=== PATIENT | male | born 1945 | race Caucasian/White ===

== ENCOUNTER 2023-08-17 12:58 | Emergency (ER) | payer MEDICARE, SELFPAY ==
[2023-08-17 13:07] VITALS: BP 153/99
[2023-08-17 13:28] LABS: % Basophils 1.3 % (0-2); % Eosinophils 5.8 % (0-6); % Immature Granulocytes 0.7 % (0-0.5); % Lymphocytes 23.4 % (20.5-51.1); % Monocytes 8.8 % (1.7-9.3); Absolute Basophils 0.2 10^3/uL (0-0.2); Absolute Eosinophils 0.8 10^3/uL (0-0.7); Absolute Immature Granulocytes 0.1 10^3/uL (0-0.05); Absolute Lymphocytes 3.2 10^3/uL (1.2-3.4); Absolute Monocytes 1.2 10^3/uL (0.1-0.6); Absolute Neutrophils 8.1 10^3/uL (1.4-6.5); Hemoglobin 15.7 g/dL (13.0-18.0); Mean Corp Hgb Conc. 34.9 g/dL (33.0-37.0); Mean Corpuscular Hgb 32.1 pg (27.0-31.0); Mean Platelet Volume 8.7 fL (7.4-10.4); Nucleated Red Blood Cells % 0 % (-); Platelet Count 162 10^3/uL (130-400); Red Blood Cell Count 4.89 10^6/uL (4.70-6.10); White Blood Cell Count 13.5 10^3/uL (4.8-10.8)
[2023-08-17 13:41] LABS: COVID-19 Antigen Negative (Negative)
[2023-08-17 13:43] LABS: ALT (SGPT) 24 U/L (0-50); AST (SGOT) 30 U/L (17-59); Albumin 4.7 g/dl (3.5-5.0); Alkaline Phosphatase 102 U/L (38-126); Blood Urea Nitrogen 24 mg/dl (9-20); Calcium 9.4 mg/dl (8.4-10.2); Carbon Dioxide 21 mmol/L (22-30); Chloride 107 mmol/L (98-107); Glucose 94 mg/dl (70-99); Potassium 5.1 mmol/L (3.5-5.1); Sodium 139 mmol/L (135-145); Total Bilirubin 0.7 mg/dl (0.2-1.3); Total Protein 7.6 g/dl (6.3-8.2); eGFR > 60.00
[2023-08-17 13:49] LABS: NT-proBNP 296 pg/ml
--- NOTE | 2023-08-17 14:30 | ED.GENMED ---
History of Present Illness
General
Chief Complaint: Breathing Problem
Source: patient
Time Seen by Provider: 08/17/23 14:07
Travel History
Have you had any contact with someone who has COVID-19?: No
Do you have any symptoms of coronavirus? Fever > 100 degrees, chills, cough, shortness of breath, sore throat, loss of taste or smell, muscle aches, or headache?: Yes
Symptoms:: cough
History of Present Illness
History of Present Illness:
78-year-old male with past medical history of hypertension, GERD, hypothyroidism, cough induced asthma presenting to the emergency department for evaluation of persistent cough, shortness of breath, wheezing and generally feeling unwell over the
last week. Family in room notes that 2 to 3 weeks ago patient did have a URI and seems to have not recovered fully. They note that at nighttime patient's symptoms are significantly worse to the point where he is unable to lay down flat and is up
all night coughing. Patient endorses scant sputum production but denies any hemoptysis. He states while he has not had any fevers he does feel he gets clammy and chills. No known sick contacts, recent travel or recent antibiotics. Patient does
have a couple inhalers that he uses but states he is not having much relief with this. Of note, patient has never been admitted for asthma or been intubated in the past.
Past History
Past History
ED Past Medical History: GERD, HTN, Hypothyroidism and Psychiatric
ED Past Surgical History: Tonsilectomy
Social History
Tobacco: Non-smoker
Alcohol: None
Drug: None
Personal: Single
Living: with family
Review of Systems
Review of Systems
All Other Systems: ROS reviewed and negative except as documented in HPI and ROS
Phy Exam
Physical Exam
Physical Exam:
GENERAL: Alert , in no apparent distress
EYE: conjunctiva clear
NECK: Supple
ENT: o/p clr, mmm.
CARDIAC: Regular rate and rhythm
LUNGS: Inspiratory and expiratory wheezing noted throughout full johnston, somewhat diminished lung sounds throughout, tachypnea but no accessory muscle use. Speaking full sentences.
NEUROLOGICAL: Alert and oriented
SKIN: Warm and dry, skin intact.
MUSCULOSKELETAL: well perfused. no edema
PSYCH: Normal and appropriate interaction.
Scores
Heart Failure Risk
Heart Failure Risk Score: Not Applicable
Heart Score for Chest Pain Patients
STEMI patient?: Not applicable
Withdrawal Assessment of Alcohol
Withdrawal Assessment Completed?: Not applicable
Course
Orders/Labs/Results
Orders:
Orders
08/17/23 13:20
COVID-19 Antigen Urgent
Source: Nasal Swab
Complete Blood Count/With Diff Urgent
Comprehensive Metabolic Panel Urgent
NT-proBNP Urgent
Influenza A+B Rapid Molecular Urgent
HEAVENLY Source: Nasal Swab
Specimen Description:
08/17/23 13:58
CR Chest - 2 Views Urgent
Comment:
Reason For Exam: cough
08/17/23 14:29
Albuterol Nebs [Ventolin Nebules] 2.5 mg INH R NOW STA
Ipratropium/Albuterol Sulfate [Duoneb] 3 ml INH R NOW ONE
MethylPREDNISolone PF [Solu-Medrol Pf] 60 mg IV NOW STA
08/17/23 16:39
Albuterol Sulfate [Ventolin Nebules] 10 mg INH R NOW STA
Abnormal Lab Results
08/17/23
13:20
WBC 13.5 H 10^3/uL
(4.8-10.8)
MCH 32.1 H pg
(27.0-31.0)
Abs Immat Gran (auto) 0.1 H 10^3/uL
(0-0.05)
Absolute Neuts (auto) 8.1 H 10^3/uL
(1.4-6.5)
Absolute Monos (auto) 1.2 H 10^3/uL
(0.1-0.6)
Absolute Eos (auto) 0.8 H 10^3/uL
(0-0.7)
Immature Gran % 0.7 H %
(0-0.5)
Carbon Dioxide 21 L mmol/L
(22-30)
BUN 24 H mg/dl
(9-20)
08/17/23 13:20
08/17/23 13:20
Vital Signs
Initial and Last Documented VS:
Initial Vital Signs
Temp Pulse Resp BP Pulse Ox
98.0 F 74 18 153/99 96
08/17/23 13:07 08/17/23 13:07 08/17/23 13:07 08/17/23 13:07 08/17/23 13:07
Last Documented Vital Signs
Temp Pulse Resp BP Pulse Ox
98.0 F 74 18 136/72 96
08/17/23 13:07 08/17/23 17:33 08/17/23 17:33 08/17/23 17:33 08/17/23 17:33
MDM/Problems Addressed
Differential Diagnosis Includes:
Pneumonia, asthma exacerbation, bronchitis, URI
MDM/Problems Addressed:
78-year-old male presenting the emergency department for evaluation following continuous cough with shortness of breath in setting of recent viral URI. Symptoms been ongoing for about 2 or 3 weeks without any relief. On exam, patient has
pronounced wheezing throughout anterior and posterior lung johnston and he is to keep but has normal oxygen saturation and heart rate. I do not have concern for PE given lack of risk factors combined with physical exam findings of diffuse wheezing.
Labs have been initiated in triage and there is a leukocytosis but without leftward shift. COVID and flu testing was negative. Chest x-ray pending. Will treat with Solu-Medrol, DuoNeb and albuterol.
Chronic conditions affecting care: Asthma
Acute Exacerbation and/or Progression of Chronic Illness: Asthma
*Radiology
Radiology exam reviewed: preliminary read by ED provider (No signs of pneumonia)
*Pulse Oximetry
Patient hypoxic: no
*Critical Care Note
Total Time (30-74mins, 75-104mins- exclusive of procedures): Not Applicable
Patient Management
Escalation/DeEscalation of care consider admission/obs:
4:50 PM: On reevaluation patient notes he feels significantly improved following nebulizer treatments. He still has inspiratory and expiratory wheezing on exam but continues to speak full sentences and in no acute respiratory distress. I am going
to treat with an additional neb. Will reassess patient following and will make disposition at that time.
5:35 PM: Following last neb treatment patient notes feeling full resolution of symptoms. He still had slight apical wheeze on exam but had significant improvement of lung sounds throughout. Patient wishes to be discharged home. He already has
scheduled follow-up at the [facility] on Thursday. He has a nebulizer machine at home but does not have medications for this we will prescribe him this. I also sent him home with a 5-day course of prednisone. He is aware of return precautions to the
emergency department and otherwise stable for discharge home
ED Attending Note
-
Portions of this chart may have been created with voice recognition software.� Occasional wrong word or��sound alike� substitutions may have occurred due to the inherent limitations of voice recognition software.
Discharge Plan
Departure
Patient Disposition: Home (Routine Discharge)
Date of Disposition: 08/17/23
Time of Disposition: 17:29
Patient with high blood pressure during this ER visit?: Yes
Discharge Problem:
Asthma with acute exacerbation
Instructions: Asthma, Adult (DC)
Prescriptions:
New
prednisone 50 mg tablet
50 mg PO DAILY Qty: 5 0RF
albuterol sulfate 2.5 mg /3 mL (0.083 %) solution for nebulization
2.5 mg inhalation Q6H PRN (Reason: shortness of breath or wheezing) Qty: 90 0RF
No Action
atorvastatin 20 MG tablet
1.5 tab PO QPM
clonazepam 0.5 MG tablet
0.5 mg PO BIDPRN PRN (Reason: anxiety)
levothyroxine 75 MCG tablet
75 mcg PO DAILY
tamsulosin 0.4 MG capsule
0.4 mg PO QPM
mometasone [Nasonex] 17 GM spray,non-aerosol
1 spray intranasal DAILY
montelukast 10 MG tablet
10 mg PO DAILY
albuterol sulfate 18 GM HFA aerosol inhaler
1 - 2 puff IH Q4HPRN PRN (Reason: ashtma)
metoprolol tartrate 25 MG tablet
25 mg PO BID
tiotropium bromide [Spiriva with HandiHaler] 18 MCG capsule, w/inhalation device
18 mcg IH DAILY
duloxetine 30 MG capsule,delayed release(DR/EC)
30 mg PO DAILY
pregabalin 50 MG capsule
50 mg PO BID
budesonide-formoterol [Symbicort] 1 PUFF HFA aerosol inhaler
1 puff inhalation BID
omega 4-vcc-ire-fish oil [Fish Oil] 1 EACH capsule
1 ea PO DAILY
hydrocodone-acetaminophen [Imboden] 1 EACH tablet
1 ea PO Q4HPRN PRN (Reason: pain) Qty: 15 0RF
prednisone 20 MG tablet
40 mg PO DAILY Qty: 8 0RF
Referrals:
NONE,* [Family Provider] -
Phillip Keating MD [Active] - (Pulmonary)
Interventions
Interventions:
*Risk Screen - Suicide Last Done: 08/17/23 13:07
*General Assessment Last Done: 08/17/23 13:07
*Neglect/Abuse Screening Last Done: 08/17/23 13:07
ED- Fall Risk Assessment Last Done: 08/17/23 13:59
*ED COVID-19 Vaccine History Last Done: 08/17/23 13:07
*Nursing Disposition Last Done: 08/17/23 17:50
ED- Cardiac Assessment Last Done: 08/17/23 13:59
ED- Pulmonary Assessment Last Done: 08/17/23 13:59
[2023-08-17 14:45] VITALS: BP 147/79
[2023-08-17] MEDS: SOLU-MEDROL PF 60 MG IV (14:50)
[2023-08-17] MEDS: VENTOLIN NEBULES 2.5 MG INH (14:50)
[2023-08-17] MEDS: DUONEB 3 ML INH (14:50)
[2023-08-17] MEDS: VENTOLIN NEBULES 10 MG INH (16:45)
[2023-08-17 17:33] VITALS: BP 136/72
== END 2023-08-17 18:37 | disposition home or self-care (01) ==
LOC: EMR 12:58
PROVIDERS: EMERGENCY PHYSICIAN Student in an Organized Health Care Education/Training Program
DX: J45.901 Unspecified asthma with (acute) exacerbation (principal); I10 Essential (primary) hypertension; K21.9 Gastro-esophageal reflux disease without esophagitis; E03.9 Hypothyroidism, unspecified; Z11.52 Encounter for screening for COVID-19
CPT/HCPCS: 99284; 96374; 94640; 71046; 80053; 83880; 85025; 87502; 87811

== ENCOUNTER 2023-09-03 10:14 | Inpatient (IN) | payer MEDICARE, SELFPAY ==
[2023-09-03] VITALS (7 sets, daily range): BP systolic 121–160; BP diastolic 71–105; BMI 33.7; BMI 33.0
--- NOTE | 2023-09-03 08:32 | ED.GENMED ---
History of Present Illness
General
Chief Complaint: Breathing Problem
Source: patient
Exam Limitations: none
Time Seen by Provider: 09/03/23 08:28
Travel History
Have you had any contact with someone who has COVID-19?: No
Do you have any symptoms of coronavirus? Fever > 100 degrees, chills, cough, shortness of breath, sore throat, loss of taste or smell, muscle aches, or headache?: No
History of Present Illness
History of Present Illness:
See MDM
Past History
Past History
ED Past Medical History: Asthma, GERD, HTN, Hypothyroidism and Psychiatric
ED Past Surgical History: Tonsilectomy
Social History
Tobacco: Non-smoker
Alcohol: None
Drug: None
Personal: Single
Living: with family
Phy Exam
Physical Exam
Physical Exam:
See MDM
Scores
Heart Failure Risk
Heart Failure Risk Score: Not Applicable
Course
Orders/Labs/Results
Orders:
Orders
09/03/23 08:17
EKG [Electrocardiogram (*1)] Urgent
Reason for Study: Shortness of Breath
EKG- Treatment ONCE
09/03/23 08:24
Ipratropium/Albuterol Sulfate [Duoneb] 3 ml .ROUTE .STK-MED ONE
09/03/23 08:25
MethylPREDNISolone PF [Solu-Medrol Pf] 125 mg .ROUTE .STK-MED ONE
09/03/23 08:28
Cardiac Monitoring- Treatment ONCE
Albuterol Sulfate [Ventolin Nebules] 7.5 mg INH R NOW STA
Ipratropium Nebs [Atrovent Nebules] 1 mg INH R NOW STA
Ipratropium/Albuterol Sulfate [Duoneb] 3 ml INH R NOW STA
Magnesium Sulfate 2 Gram/50 ml [Magnesium Sulfate] 2 gram in 50 ml IV NOW
09/03/23 08:29
CR Chest Portable - 1 View Urgent
Comment:
Reason For Exam: asthma, SOB
Reason Study Needs to be Portable: Patient Unstable
09/03/23 08:36
Complete Blood Count/With Diff Urgent
Comprehensive Metabolic Panel Urgent
09/03/23 08:48
Albuterol Sulfate [Ventolin Nebules] 2.5 mg .ROUTE .STK-MED ONE
09/03/23 09:15
MethylPREDNISolone PF [Solu-Medrol Pf] 125 mg IV NOW STA
Abnormal Lab Results
09/03/23
08:36
WBC 12.5 H 10^3/uL
(4.8-10.8)
MCV 94.5 H fL
(80.0-94.0)
MCH 32.8 H pg
(27.0-31.0)
Abs Immat Gran (auto) 0.1 H 10^3/uL
(0-0.05)
Absolute Neuts (auto) 8.4 H 10^3/uL
(1.4-6.5)
Absolute Monos (auto) 0.9 H 10^3/uL
(0.1-0.6)
Absolute Eos (auto) 1.2 H 10^3/uL
(0-0.7)
Immature Gran % 0.8 H %
(0-0.5)
Lymphocytes % 14.0 L %
(20.5-51.1)
Eosinophils % 9.7 H %
(0-6)
Chloride 109 H mmol/L
(98-107)
BUN 22 H mg/dl
(9-20)
Glucose 115 H mg/dl
(70-99)
09/03/23 08:36
09/03/23 08:36
Vital Signs
Initial and Last Documented VS:
Initial Vital Signs
Temp Pulse Resp Pulse Ox
97.2 F 88 32 98
09/03/23 08:20 09/03/23 08:20 09/03/23 08:20 09/03/23 08:20
Last Documented Vital Signs
Temp Pulse Resp Pulse Ox
97.2 F 88 32 98
09/03/23 08:20 09/03/23 08:20 09/03/23 08:20 09/03/23 08:20
MDM/Problems Addressed
Differential Diagnosis Includes:
HPI and MDM Narrative:
78-year-old male presenting with significant shortness of breath and wheezing. Per family, patient has been dealing with a cough over the past month or so. Patient developed significant wheeze earlier this morning and came right to the emergency
department. He was wheeled back immediately. I was called to the room for respiratory distress. On exam, patient is extremely tachypneic and audible wheezing from the door. Patient started immediately on an hour-long nebulizer treatment and
given 125 mg of Solu-Medrol. Family at bedside stating that patient was diagnosed with 'cough variant asthma'. Family states that Symbicort has helped in the past when he has gotten this sick. However, given his distress, will continue with the
IV steroids and hour-long breathing treatment. Patient given IV magnesium
Physical exam
General: Uncomfortable, tachypneic, audible wheezing
HEENT: protecting airway
Neck: appears supple
CV: No evidence of cyanosis
Resp: Mild accessory muscle use. Diffuse expiratory wheezing throughout. Respiratory distress
Abd: Non-distended
Extremities: No deformities
Neuro: alert
Psych: Anxious
Skin: Intact
Problems Addressed including Acute and Chronic Conditions affecting care:
1. Severe asthma exacerbation
Acuity: acute
Prognosis: unstable
Details: Patient started on IV Solu-Medrol, IV magnesium and hour-long nebulizer treatment
Updates
9:30 AM after multiple reassessments, patient has significantly improved but still has mild tachypnea and expiratory wheezing. Given his age and ongoing symptoms despite aggressive treatment, will admit
Differential Diagnosis (but not limited to): Asthma exacerbation, viral syndrome, pneumonia
Testing considered: BNP but no clinical signs of heart failure
Drug therapy (if applicable): OTC meds, please see d/c instruction regarding Rx drugs
Amount and/or Complexity of Data Reviewed
Clinical info obtained from: Patient
External data reviewed: N/A
Labs I independently reviewed (but not limited to): Mild leukocytosis
Radiology: X-ray independently reviewed: Chest x-ray clear
Pulse Ox: hypoxic
EKG independently reviewed: Sinus rhythm, normal axis, no STEMI, artifact noted
Picu Nurse: Sinus rhythm
Critical Care: The high probability of a clinically significant, sudden or life threatening deterioration of the pulmonary system(s) required my full and direct attention, intervention and personal management. The aggregate critical care time was 35
minutes. This time is in addition to time spent performing reported procedures but includes the following:
[x] Data Review and interpretation
[x] Patient assessment and monitoring of vital signs
[x] Documentation
[x] Medication orders and management
Risk of Complication:
Social Determinants of health: Good social support
Discussed with other providers: Hospitalist
Escalation of Care includes Admit/Obs: Given significant asthma symptoms despite IV steroids and hour-long treatment, will admit
Occasional wrong word or 'sound a like' substitutions may have occurred due to the inherent limitations of voice recognition software. Read the chart carefully and recognize, using context, where substitutions have occurred.
*Critical Care Note
Total Time (30-74mins, 75-104mins- exclusive of procedures): 35 min
ED Attending Note
-
Portions of this chart may have been created with voice recognition software.� Occasional wrong word or��sound alike� substitutions may have occurred due to the inherent limitations of voice recognition software.
Discharge Plan
Departure
Patient Disposition: Admit
Date of Disposition: 09/03/23
Time of Disposition: 09:29
Admit to: Med/Surg
Presentation/result/management discussed w/ accepting MD/DO: Hospitalist
Discharge Problem:
Asthma exacerbation
Prescriptions:
No Action
atorvastatin 20 MG tablet
1.5 tab PO QPM
clonazepam 0.5 MG tablet
0.5 mg PO BIDPRN PRN (Reason: anxiety)
levothyroxine 75 MCG tablet
75 mcg PO DAILY
tamsulosin 0.4 MG capsule
0.4 mg PO QPM
mometasone [Nasonex] 17 GM spray,non-aerosol
1 spray intranasal DAILY
montelukast 10 MG tablet
10 mg PO DAILY
albuterol sulfate 18 GM HFA aerosol inhaler
1 - 2 puff IH Q4HPRN PRN (Reason: ashtma)
metoprolol tartrate 25 MG tablet
25 mg PO BID
tiotropium bromide [Spiriva with HandiHaler] 18 MCG capsule, w/inhalation device
18 mcg IH DAILY
duloxetine 30 MG capsule,delayed release(DR/EC)
30 mg PO DAILY
pregabalin 50 MG capsule
50 mg PO BID
budesonide-formoterol [Symbicort] 1 PUFF HFA aerosol inhaler
1 puff inhalation BID
omega 0-lvz-qcy-fish oil [Fish Oil] 1 EACH capsule
1 ea PO DAILY
hydrocodone-acetaminophen [[place]] 1 EACH tablet
1 ea PO Q4HPRN PRN (Reason: pain) Qty: 15 0RF
prednisone 20 MG tablet
40 mg PO DAILY Qty: 8 0RF
prednisone 50 mg tablet
50 mg PO DAILY Qty: 5 0RF
albuterol sulfate 2.5 mg /3 mL (0.083 %) solution for nebulization
2.5 mg inhalation Q6H PRN (Reason: shortness of breath or wheezing) Qty: 90 0RF
Referrals:
UNKNOWN - PT DOES,NOT KNOW [Family Provider] -
Interventions
Interventions:
*Risk Screen - Suicide Last Done: 09/03/23 08:53
*General Assessment Last Done: 09/03/23 08:53
*Neglect/Abuse Screening Last Done: 09/03/23 08:53
ED- Fall Risk Assessment Last Done: 09/03/23 08:53
*ED COVID-19 Vaccine History Last Done: 09/03/23 08:53
ED- Cardiac Assessment Last Done: 09/03/23 08:53
ED- Pulmonary Assessment Last Done: 09/03/23 08:53
Discharge Date and Time
Print Language: GUAMANIAN
[2023-09-03] MEDS: MAGNESIUM SULFATE 50 IV (08:38)
[2023-09-03] MEDS: DUONEB 3 ML INH (08:43)
[2023-09-03] MEDS: ATROVENT NEBULES 1 MG INH (08:46)
[2023-09-03 08:48] LABS: % Eosinophils 9.7 % (0-6); % Immature Granulocytes 0.8 % (0-0.5); % Monocytes 7.3 % (1.7-9.3); % Neutrophils 67.2 % (42.2-75.2); Absolute Basophils 0.1 10^3/uL (0-0.2); Absolute Eosinophils 1.2 10^3/uL (0-0.7); Absolute Immature Granulocytes 0.1 10^3/uL (0-0.05); Absolute Lymphocytes 1.8 10^3/uL (1.2-3.4); Absolute Monocytes 0.9 10^3/uL (0.1-0.6); Absolute Neutrophils 8.4 10^3/uL (1.4-6.5); Hematocrit 44.4 % (39.0-52.0); Hemoglobin 15.4 g/dL (13.0-18.0); Mean Corp Hgb Conc. 34.7 g/dL (33.0-37.0); Mean Corpuscular Hgb 32.8 pg (27.0-31.0); Mean Corpuscular Volume 94.5 fL (80.0-94.0); Mean Platelet Volume 8.7 fL (7.4-10.4); Nucleated Red Blood Cells % 0 % (-); Platelet Count 162 10^3/uL (130-400); Red Cell Dist. Width 13.2 % (11.5-14.5); White Blood Cell Count 12.5 10^3/uL (4.8-10.8)
[2023-09-03] MEDS: VENTOLIN NEBULES 7.5 MG INH (08:49)
[2023-09-03 08:56] LABS: ALT (SGPT) 33 U/L (0-50); AST (SGOT) 33 U/L (17-59); Albumin 4.7 g/dl (3.5-5.0); Alkaline Phosphatase 92 U/L (38-126); Blood Urea Nitrogen 22 mg/dl (9-20); Calcium 9.5 mg/dl (8.4-10.2); Carbon Dioxide 23 mmol/L (22-30); Chloride 109 mmol/L (98-107); Glucose 115 mg/dl (70-99); Potassium 4.4 mmol/L (3.5-5.1); Sodium 140 mmol/L (135-145); Total Bilirubin 0.7 mg/dl (0.2-1.3); Total Protein 7.5 g/dl (6.3-8.2); eGFR > 60.00
--- NOTE | 2023-09-03 09:40 | HPS.HSE ---
Family Physician
-
Family Physician: NOT KNOW UNKNOWN - PT DOES
Chief Complaint
-
Cough and shortness of breath for 1 day during
History of Present Illness
78 years old male came from [facility]. Patient lives alone. Patient reported cough with shortness of breath and wheezes for almost a month. It is exacerbated gradually despite use of nebulizer treatment at home. He could not sleep last
night and felt his condition deteriorated over night. He described cough as constant day and night with yellow- colored sputum. No fevers. His partner called him last night and noticed that patient was not able to finish sentences. Patient has
history of asthma/cough variant. He was on Symbicort few years ago and did well but did not follow-up with pulmonary and was not taking it anymore.
Patient was seen in August 16 for asthma exacerbation in the emergency room and was given oral prednisone therapy and nebulizer albuterol treatment. Patient was advised to follow-up with pulmonary doctor but did not make an appointment.
Patient denies chest pain or GI symptoms.
Medical History
Past Medical History
Past Medical History: Reports Other (Asthma, chronic back pain with spinal stenosis, hypothyroidism)
Past Surgical History: Reports Other (No recent major surgery)
Social History
Tobacco: Non-smoker
Alcohol: Occasional
Drug: None
Personal: Single
Living: Alone
Employment: Retired
Family History
Family History: CAD
Allergies / Home Medications
Allergies reflects when Allergies were last updated in [facility].
Home Medications with original date entered in [facility]
Allergy/Medication List:
Allergies
Allergy/AdvReac Type Severity Reaction Status Date / Time
gabapentin [From Neurontin] Allergy Unknown Verified 09/03/23 08:18
Sulfa (Sulfonamide Allergy Rash Verified 09/03/23 08:18
Antibiotics)
Home Medications
atorvastatin 20 mg tablet 10 mg PO QPM 03/02/19
clonazepam 0.5 mg tablet 0.5 mg PO BIDPRN PRN anxiety 03/02/19
duloxetine 30 mg capsule,delayed release 30 mg PO DAILY 03/02/19
metoprolol tartrate 25 mg tablet 25 mg PO DAILY 03/02/19
montelukast 10 mg tablet 10 mg PO DAILY 03/02/19
tamsulosin 0.4 mg capsule 0.4 mg PO HS 03/02/19
tiotropium bromide 18 mcg capsule with inhalation device (Spiriva with HandiHaler) 18 mcg inhalation R DAILY PRN sob 03/02/19
Lactobacillus Combo Tablet 1 tab PO QPM 09/03/23
acetaminophen 650 mg tablet,extended release (Tylenol 8 Hour) 1,300 mg PO Q8H PRN mild pain 09/03/23
albuterol sulfate 2.5 mg/3 mL (0.083 %) solution for nebulization 2.5 mg inhalation R Q6HPRN PRN shortness of breath or wheezing 09/03/23
albuterol sulfate 90 mcg/actuation aerosol inhaler 2 puff inhalation R Q6HPRN PRN sob 09/03/23
ascorbic acid (vitamin C) 500 mg tablet (Vitamin C) 500 mg PO DAILY PRN supplement 09/03/23
aspirin 81 mg tablet,delayed release 81 mg PO DAILY 09/03/23
dextran 70-hypromellose (PF) 0.1 %-0.3 % eye drops in a dropperette (Artificial Tears (PF)) 1 drp BOTH EYES DAILYPRN PRN dry eyes 09/03/23
fluticasone 500 mcg-salmeterol 50 mcg/dose blistr powdr for inhalation 1 inh inhalation R BID 09/03/23
hydrocortisone 1 % topical cream 1 applic topical DAILYPRN PRN apply to B/L arms 09/03/23
levothyroxine 88 mcg tablet 88 mcg PO DAILY 09/03/23
multivitamin with folic acid 400 mcg tablet (High Potency Multivitamin) 1 tab PO DAILY 09/03/23
omeprazole 20 mg capsule,delayed release 20 mg PO BID 09/03/23
psyllium 1 tbsp PO BID 09/03/23
triamcinolone acetonide 0.1 % topical cream 1 applic topical DAILY PRN apply to B/L arms 09/03/23
vit C 250 mg-vit E 90 mg-zinc 40 mg-copper 1 [id number] capsule (PreserVision AREDS-2) 1 tab PO BID 09/03/23
Review of Systems
-
History Source: Patient
A 12 point ROS was completed and negative except as noted: Yes
Constitutional: Denies Fever
EENT: Denies Sore Throat
Respiratory: Reports Cough and Trouble Breathing
Cardiac: Denies Chest Pain
Abdomen/GI: Denies Abdominal Pain
: Denies Dysuria
Musculoskeletal: Reports Other (Chronic lower back pain); Denies Joint Pain
Skin: Denies Itching
Neurological: Denies Dizzy
Endocrine: Denies Temp Intolerance
Hematologic/Lymphatic: Denies Bruising
Psych: Denies Panic Disorder
Physical Exam
Vital Signs
Vital Signs
Temp Pulse Resp Pulse Ox
97.2 F 88 32 98
09/03/23 08:20 09/03/23 08:20 09/03/23 08:20 09/03/23 08:20
Physical Exam
General: Well Nourished and Obese
HEENT: Moist mucous membranes and Atraumatic
Respiratory: Wheezes and Rhonchi
Cardiac: S1/S2 and Regular Rhythm
GI: Soft and Non Tender
Rectal: No Maroon Stools
Genito-urinary: No costovertebral tender
Musculoskeletal: No Clubbing, No Cyanosis and No Edema
Skin: Warm and Dry; No Jaundice
Neuro: AO x 3 and Nonfocal/grossly intact
Psych: Calm and Intact Judgment/Insight
Laboratory Results
-
09/03/23 08:36
09/03/23 08:36
Laboratory Results
Total Bilirubin 0.7 mg/dl (0.2-1.3) 09/03/23 08:36
AST 33 U/L (17-59) 09/03/23 08:36
ALT 33 U/L (0-50) 09/03/23 08:36
Alkaline Phosphatase 92 U/L (38-126) 09/03/23 08:36
Impression/Plan
-
78 years old male presented with asthma exacerbation
#Acute eczema exacerbation
Patient has history of cough variant asthma. Patient was seen and August 16 for asthma exacerbation was discharged on oral prednisone therapy and albuterol nebulizer therapy.
Admit the patient to the hospital. Continue on IV steroid
Continue nebulizer treatment
Place the patient back on Symbicort treatment
Patient has poorly controlled asthma in outpatient setting. He will benefit from outpatient follow-up.
Appreciate pulmonary input
# Leukocytosis, likely reactive. No fever. Monitor temperature curve.
#Hypothyroidism, no changes intended.
#Chronic back pain/lumbar stenosis. Currently using Tylenol for back pain.
# History of GERD, continue with PPI.
# DVT prophylaxis with subcu heparin
Total time spent to see the patient, examine the patient on the floor, review data and lab results, discuss treatment plan with patient, ER doctor, nursing staff around 75 minutes.
[2023-09-03] MEDS: SOLU-MEDROL PF 125 MG IV (09:43)
--- NOTE | 2023-09-03 09:56 | PHANOTE ---
09/03/2023, [facility], spoke to pt. and used [facility] to obtain pt.'s med. history; pt. states to be taking Spiriva 18 mcg dailyprn for sob; however, I could not find this med. in pharmacy fill data, [facility] records, or [facility]
paperwork so I could not confirm it; additionally, pt. has recently filled the Buprenorphine 0.02 mg/hr patch on 09/02/2023 for 4 patches per PDMP to be used once a week but pt. has not started using this med. yet.
[2023-09-03] MEDS: VENTOLIN NEBULES 2.5 MG INH (12:21)
[2023-09-03] MEDS: SYMBICORT 160/4.5 MCG INHALER INH (13:03)
[2023-09-03 13:24] LABS: COVID-19 Antigen Negative (Negative)
[2023-09-03] MEDS: ProAIR HFA INHALER 2 PUFF INH (15:45)
[2023-09-03] MEDS: TYLENOL 1000 MG PO (15:46)
[2023-09-03] MEDS: KLONOPIN 0.5 MG PO (15:47)
[2023-09-03] MEDS: SOLU-MEDROL PF 40 MG IV ×2 (15:48→23:21)
[2023-09-03] MEDS: LIDOCAINE 4% PATCH 1 PATCH TOPICAL (16:48)
[2023-09-03] MEDS: LIPITOR 10 MG PO (18:08)
--- NOTE | 2023-09-03 19:28 | PTCARENOTE ---
Patient admitted from the ER into room 403-02. Patient assisted to bathroom and noted to have SOB/ with audible wheezing. Respiratory therapy contacted for prn treatment. Vital signs stable. Patient educated on use of call paritda, television and
bed controls. Patient verbalizes understanding of teaching. Reviewed plan of care with patient. Patient verbalizes understanding of plan and denies questions at this time.
[2023-09-03] MEDS: SYMBICORT 160/4.5 MCG INHALER 2 PUFF INH (19:45)
[2023-09-03] MEDS: HEPARIN 5000 UNITS SC (21:00)
[2023-09-03] MEDS: FLOMAX 0.400000000000000022 MG PO (21:00)
[2023-09-03] MEDS: PROTONIX 20 MG PO (21:00)
[2023-09-04] MEDS: ProAIR HFA INHALER 2 PUFF INH ×2 (02:43→08:34)
[2023-09-04 02:46] VITALS: BP 139/86
[2023-09-04] MEDS: SYNTHROID 88 MCG PO (06:18)
[2023-09-04 07:10] VITALS: BP 124/76
[2023-09-04] MEDS: CYMBALTA DELAYED RELEASE 30 MG PO (07:52)
[2023-09-04] MEDS: SOLU-MEDROL PF 40 MG IV ×3 (07:52→23:50)
[2023-09-04] MEDS: PROTONIX 20 MG PO ×2 (07:52→20:24)
[2023-09-04] MEDS: HEPARIN 5000 UNITS SC ×2 (07:52→20:24)
[2023-09-04] MEDS: ASPIR LOW (ENTERIC COATED) 81 MG PO (07:52)
[2023-09-04] MEDS: LIDOCAINE 4% PATCH 1 PATCH TOPICAL (07:53)
[2023-09-04] MEDS: SYMBICORT 160/4.5 MCG INHALER 2 PUFF INH ×2 (08:26→19:30)
--- NOTE | 2023-09-04 09:47 | CON.PUL ---
Consultation
Consultation Request
Date/Time Consultation Requested: 09/04/23-7 AM
Date/Time Consultation Performed: 09/04/23-8 AM
Requesting Provider: Hospitalist
Performing Provider: Dr. Addison
Reason for Consultation: Asthma exacerbation
Medical History
-
Chief Complaint: Shortness of breath
History of Present Illness:
75-year-old male with a history of asthma, chronic back pain, hypothyroidism presented with increasing shortness of breath and wheezing for nearly a month and admitted with an asthma exacerbation-pulmonary consulted for asthma exacerbation 09/04/23.
He states that he has had increasing shortness of breath, wheezing and is using his albuterol rescue inhaler multiple times throughout the day. Does not complain of any chest pain, chest tightness, pleurisy, mopped assist, abdominal pain, nausea,
weakness, or increased lower extremity swelling.
Past Medical History
Past Medical History: None (Asthma. Chronic back pain. Spinal stenosis. Hypothyroid. Obesity.)
Social History
Tobacco: Non-smoker
Alcohol: None
Drug: None
Personal: Single
Living: Alone
Occupational Exposures: No known asbestos exposure-worked in the [employer]
Environmental Exposures: No known tuberculosis exposure
Family History
Family History: Reviewed & Not Pertinent
Allergies / Home Medications
Allergies
Allergy/AdvReac Type Severity Reaction Status Date / Time
gabapentin [From Neurontin] Allergy Unknown Verified 09/03/23 08:18
Sulfa (Sulfonamide Allergy Rash Verified 09/03/23 08:18
Antibiotics)
Home Medications
�Medication �Instructions �Recorded �Confirmed �Last Taken �Type
atorvastatin 20 mg tablet 10 mg PO QPM High Cholesterol 03/02/19 09/03/23 09/02/23 History
clonazepam 0.5 mg tablet 0.5 mg PO BIDPRN PRN anxiety 03/02/19 09/03/23 09/03/23 History
duloxetine 30 mg capsule,delayed 30 mg PO DAILY Mental 03/02/19 09/03/2309/02/24 History
release Health/Anxiety
metoprolol tartrate 25 mg tablet 25 mg PO DAILY Blood Pressure 03/02/19 09/03/23 09/03/23 History
montelukast 10 mg tablet 10 mg PO DAILY ASTHMA 03/02/19 09/03/23 09/03/23 History
tamsulosin 0.4 mg capsule 0.4 mg PO HS Urinary Issue 03/02/19 09/03/23 09/02/23 History
tiotropium bromide 18 mcg capsule 18 mcg inhalation R DAILYPRN PRN 03/02/19 09/03/23 2 Days Ago History
with inhalation device (Spiriva sob ~09/01/23
with HandiHaler)
Lactobacillus Combo Tablet 1 tab PO QPM Gastrointestinal Issue 09/03/23 09/03/23 09/02/23 History
acetaminophen 650 mg 1,300 mg PO Q8H PRN mild pain 09/03/23 09/03/23 09/02/23 History
tablet,extended release (Tylenol 8
Hour)
albuterol sulfate 2.5 mg/3 mL 2.5 mg inhalation R Q6HPRN PRN 09/03/23 09/03/23 09/02/23 History
(0.083 %) solution for nebulization shortness of breath or wheezing
albuterol sulfate 90 mcg/actuation 2 puff inhalation R Q6HPRN PRN sob 09/03/23 09/03/23 09/03/23 History
aerosol inhaler
ascorbic acid (vitamin C) 500 mg 500 mg PO DAILY PRN supplement 09/03/23 09/03/23 09/02/23 History
tablet (Vitamin C)
aspirin 81 mg tablet,delayed 81 mg PO DAILY Blood Clot 09/03/23 09/03/23 09/03/23 History
release Prevention/Tx
dextran 70-hypromellose (PF) 0.1 1 drp BOTH EYES DAILYPRN PRN dry 09/03/23 09/03/23 08/31/23 History
%-0.3 % eye drops in a dropperette eyes
(Artificial Tears (PF))
fluticasone 500 mcg-salmeterol 50 1 inh inhalation R BID 09/03/23 09/03/23 09/03/23 History
mcg/dose blistr powdr for Lung/Breathing Issues
inhalation
hydrocortisone 1 % topical cream 1 applic topical DAILYPRN PRN 09/03/23 09/03/23 4 Days Ago History
apply to B/L arms ~08/30/23
levothyroxine 88 mcg tablet 88 mcg PO DAILY Thyroid 09/03/23 09/03/23 09/03/23 History
multivitamin with folic acid 400 1 tab PO DAILY Supplement 09/03/23 09/03/23 09/03/23 History
mcg tablet (High Potency
Multivitamin)
omeprazole 20 mg capsule,delayed 20 mg PO BID Gastrointestinal Issue 09/03/23 09/03/23 09/03/23 History
release
psyllium 1 tbsp PO BID 09/03/23 09/03/23 09/03/23 History
triamcinolone acetonide 0.1 % 1 applic topical DAILY PRN apply 09/03/23 09/03/23 09/02/23 History
topical cream to B/L arms
vit C 250 mg-vit E 90 mg-zinc 40 1 tab PO BID Supplement 09/03/23 09/03/23 09/03/23 History
mg-copper 1 [id number]
capsule (PreserVision AREDS-2)
Review of Systems
-
Unable to Obtain full review of systems at this time due to: Other (Per HPI)
Vitals / Labs / Diagnostic Testing
Vital Signs
Temp Pulse Resp BP Pulse Ox
98.4 F 82 16 124/76 97
09/04/23 07:10 09/04/23 08:38 09/04/23 08:38 09/04/23 07:10 09/04/23 08:38
Lab Data
09/03/23 08:36
09/03/23 08:36
Microbiology
09/03/23 13:03 Nasal Swab Influenza Types A & B ([facility]) - Final
Negative for Influenza A & B, NAAT
Negative results must be combined with clinical observations
and patient history.
Nucleic Acid Amplification test (NAAT)performed on the
[email or web address] platform.
Diagnostic Testing:
Physical Exam
-
Exam:
Well-nourished and well-developed in no apparent distress
HEENT-atraumatic, normocephalic
Neck-supple, no JVD, no bruit
Heart-regular rate and rhythm-no murmurs, rubs or gallops
Chest with diminished breath sounds, prolonged expiratory time, expiratory wheezes throughout without crackles
Back without tenderness
Abdomen-soft, nontender, nondistended, no hepatosplenomegaly
Extremities-no cyanosis, clubbing, edema and good peripheral pulses
Integument-intact, no rashes, lesions or ecchymosis
Neurology-alert and oriented, nonfocal motor and sensory exam
Assessment
-
75-year-old male with a history of asthma, chronic back pain, hypothyroidism presented with increasing shortness of breath and wheezing for nearly a month and admitted with an asthma exacerbation-pulmonary consulted for asthma exacerbation 09/04/23.
Asthma-moderate persistent with acute exacerbation
Leukocytosis
Mild hyperglycemia
Conditions present prior to admission:
Asthma-followed at the [facility], maintained on Symbicort and albuterol as needed
Chronic back pain.
Spinal stenosis.
Hypothyroid.
Obesity-BMI 33
At risk obstructive sleep apnea
Plan
History most consistent with underlying asthma-moderate persistent with acute exacerbation
Continue to closely monitor for progression of severe exacerbation--currently in mild to moderate exacerbation
Respiratory rate >30
Tachycardia >120
accessary muscle use
Inability to speak full sentences
Inability be supine
Pulsus paradox, etc.
Monitor PEF if worsens
Obtain ABG if necessary to assess for hypercapnia
Supplemental oxygen as needed
High flow oxygen if needed
BiPAP/NIV if necessary
Inhaled beta agonist
Inhaled muscarinic antagonist
Systemic steroids-methylprednisolone 40 mg IV every 8 hours initiated
Magnesium sulfate 2 g IV over 20 minutes if worsens
Eventually obtain allergy testing, IgE level, eosinophils, etc.
Consider Biologics such as Xolair -anti-IgE, Nucala-IL-5 inhibitor, Wbwbtqa-ZN-7 inhibitor, or Dupixent-I L4/13 inhibitor or Tezspire
Monitor blood sugar
Insulin supplementation as needed
DVT prophylaxis-on heparin
GI prophylaxis-on pantoprazole
Nutrition
Early mobilization
Outpatient pulmonary/sleep disorders follow-up recommended-PFTs, allergy testing, eosinophil level, IgE level, add triple inhaler-Breztri or Trelegy and consider Biologics, and possibly polysomnogram
[facility]
Reviewed with nursing
Diagnostic data:
Chest x-ray 12/06/2019-NAD
Chest x-ray 08/17/2023-flattening diaphragms suggesting COPD
Chest x-ray 09/03/23-NAD
Data Reviewed
-
EKG: Report reviewed by me
Radiology: Report reviewed by me
Medical Tests (Nuc Med, Echo etc): Report reviewed by me
Labs: Labs reviewed by me
Old Records: Reviewed
Total Time Spent with Patient (in minutes): 62
--- NOTE | 2023-09-04 09:49 | W.PN.HOSP.TC ---
Today's Communication/Plan
-
.
Assessment / Plan
Assessment / Plan
Physical Exam
General: Well Nourished and Obese
HEENT: Moist mucous membranes and Atraumatic
Respiratory: Wheezes and Rhonchi
Cardiac: S1/S2 and Regular Rhythm
GI: Soft and Non Tender
Rectal: No Maroon Stools
Genito-urinary: No costovertebral tender
Musculoskeletal: No Clubbing, No Cyanosis and No Edema
Skin: Warm and Dry; No Jaundice
Neuro: AO x 3 and Nonfocal/grossly intact
Psych: Calm and Intact Judgment/Insight
78 years old male presented with asthma exacerbation
#Acute asthma exacerbation
Patient has history of cough variant asthma. Patient was seen and August 16 for asthma exacerbation was discharged on oral prednisone therapy and albuterol nebulizer therapy.
His breathing is better, less cough, needed one time pRN Neb over night
Continue on IV steroid
Continue nebulizer treatment
Back on Symbicort treatment
No Hypoxia
Patient has poorly controlled asthma in outpatient setting. He will benefit from outpatient follow-up.
Appreciate pulmonary input
# Leukocytosis, likely reactive. No fever. Monitor temperature curve.
#Hypothyroidism, no changes intended.
#Chronic back pain/lumbar stenosis. Sometimes pain in lower back
Currently using Tylenol for back pain.
Add Lidocaine patch
# History of GERD, continue with PPI.
# DVT prophylaxis with subcu heparin
Total time spent to see the patient, examine the patient on the floor, review data and lab results, discuss treatment plan with patient, nursing staff around 55 minutes.
Anticipated Discharge: 24 - 48 hours
Subjective/Interval History
-
Date of Service: September 04, 2023
No chest pain
No sob
No headache
Objective Data
-
Vital Signs:
Vital Signs
Temp Pulse Resp BP Pulse Ox
98.4 F 82 16 124/76 97
09/04/23 07:10 09/04/23 08:38 09/04/23 08:38 09/04/23 07:10 09/04/23 08:38
I&O
09/03/23 09/04/23 09/05/23
06:59 06:59 06:59
Intake Total 720 / 720
Balance 720 / 720
[2023-09-04] MEDS: DUONEB 3 ML INH ×3 (11:39→19:30)
--- NOTE | 2023-09-04 14:29 | CM ---
Alert awake oriented patient who lives alone in an apartment with an elevator.He is independent in driving and all activities of daily living.Offered VN he declined. Uses cane. He was in [facility] and would like TT request.He has Jose Juan a supportive
friend.
No SNF/DH VN hx
[facility]armacy [facility] faxed to [phone] included last 4 # [id number].
PCP Dr Miguel Rodriguez
PLAN Home no needs
[2023-09-04 15:30] VITALS: BP 128/86
[2023-09-04] MEDS: LIPITOR 10 MG PO (18:00)
[2023-09-04 19:26] VITALS: BP 144/78
[2023-09-04] MEDS: FLOMAX 0.400000000000000022 MG PO (20:24)
[2023-09-04 23:32] VITALS: BP 124/73
[2023-09-05 03:48] VITALS: BP 134/85
[2023-09-05] MEDS: SYNTHROID 88 MCG PO (06:41)
[2023-09-05 06:52] LABS: Hematocrit 39.4 % (39.0-52.0); Hemoglobin 13.6 g/dL (13.0-18.0); Mean Corp Hgb Conc. 34.5 g/dL (33.0-37.0); Mean Corpuscular Hgb 32.5 pg (27.0-31.0); Mean Corpuscular Volume 94.3 fL (80.0-94.0); Mean Platelet Volume 9.1 fL (7.4-10.4); Platelet Count 169 10^3/uL (130-400); Red Blood Cell Count 4.18 10^6/uL (4.70-6.10); Red Cell Dist. Width 12.9 % (11.5-14.5); White Blood Cell Count 15.7 10^3/uL (4.8-10.8)
[2023-09-05] MEDS: SYMBICORT 160/4.5 MCG INHALER 2 PUFF INH (07:21)
[2023-09-05] MEDS: DUONEB 3 ML INH (07:21)
[2023-09-05 07:22] LABS: Blood Urea Nitrogen 36 mg/dl (9-20); Calcium 9.4 mg/dl (8.4-10.2); Carbon Dioxide 23 mmol/L (22-30); Chloride 106 mmol/L (98-107); Estimated Creatinine Clearance 70 ml/min; Glucose 140 mg/dl (70-99); Potassium 4.8 mmol/L (3.5-5.1); Sodium 139 mmol/L (135-145); eGFR > 60.00
[2023-09-05 07:25] VITALS: BP 140/93
[2023-09-05] MEDS: PROTONIX 20 MG PO (08:20)
[2023-09-05] MEDS: SOLU-MEDROL PF IV (08:20)
[2023-09-05] MEDS: ASPIR LOW (ENTERIC COATED) 81 MG PO (08:20)
[2023-09-05] MEDS: CYMBALTA DELAYED RELEASE 30 MG PO (08:20)
[2023-09-05] MEDS: HEPARIN 5000 UNITS SC (08:20)
[2023-09-05] MEDS: LIDOCAINE 4% PATCH 1 PATCH TOPICAL (08:20)
[2023-09-05] MEDS: DELTASONE 40 MG PO (08:47)
--- NOTE | 2023-09-05 10:11 | W.DCSUMMARY ---
Discharge Summary
Discharge Data
Date of Admission: 09/03/23
Date of Discharge: 09/05/23
-
Pending Results: No
Hospital Course
78 years old male presented with cough and wheezing. Patient was diagnosed with acute asthma exacerbation. He was started on intravenous steroid. Patient was evaluated by pulmonary doctor. Patient received nebulizer treatment. He did not have
hypoxia. His wheezes subsided. He started to feel better with no shortness of breath. No fever. Chest radiography did not show pulmonary infiltrate. No evidence of infection. Patient was advised to follow with pulmonary doctor in the office.
He remained hemodynamically stable and was discharged home in a stable condition.
Physical Exam
General: Well Nourished and Obese
HEENT: Moist mucous membranes and Atraumatic
Respiratory: No wheezes. Better air entry
Cardiac: S1/S2 and Regular Rhythm
GI: Soft and Non Tender
Rectal: No Maroon Stools
Genito-urinary: No costovertebral tender
Musculoskeletal: No Clubbing, No Cyanosis and No Edema
Skin: Warm and Dry; No Jaundice
Neuro: AO x 3 and Nonfocal/grossly intact
Psych: Calm and Intact Judgment/Insight
Total discharge time spent to see the patient, examine the patient on the floor, review data and lab results, discuss discharge plan with patient, nursing staff around 65 minutes.
Discharge Plan
-
Patient Disposition: Home (Routine Discharge)
Discharge Diagnosis/Procedures: Asthma exacerbation
Diet: As tolerated and Grind all food
Referrals:
Miguel Rodriguez MD [Non-Admitting Privileges] - in one to two weeks
Fox Addison MD [Active] - in one to two weeks (Dr. Addison or [facility]-will need PFTs, possible sleep study, inhalers)
UNKNOWN - PT DOES,NOT KNOW [Family Provider] -
Prescriptions:
New
acetaminophen [Tylenol Extra Strength] 500 mg Tablet
1,000 mg PO Q6HPRN PRN (Reason: mod to severe pain) Qty: 10 0RF
ipratropium-albuterol 0.5 mg-3 mg(2.5 mg base)/3 mL solution for nebulization
3 ml inhalation Q8H Qty: 180 0RF
budesonide-formoterol [Symbicort] 160-4.5 mcg/actuation HFA aerosol inhaler
2 puff inhalation BID Qty: 10.2 0RF
prednisone 10 mg tablet
40 mg PO DAILY Qty: 20 0RF
Rx Instructions:
40 mg for 2 days, 30 mg for 2 days, 20 mg for 2 days, 10 mg for 2 days
Continued
atorvastatin 20 MG tablet
10 mg PO QPM
clonazepam 0.5 MG tablet
0.5 mg PO BIDPRN PRN (Reason: anxiety)
Patient Comments:
09/03/2023, pt. filled this med. on 08/17/2023 for 60 tablets per PDMP.
tamsulosin 0.4 MG capsule
0.4 mg PO HS
montelukast 10 MG tablet
10 mg PO DAILY
metoprolol tartrate 25 MG tablet
25 mg PO DAILY
duloxetine 30 MG capsule,delayed release(DR/EC)
30 mg PO DAILY
aspirin 81 mg Tablet,Delayed Release (Dr/Ec)
81 mg PO DAILY
triamcinolone acetonide 0.1 % Cream
1 applic TOPICAL DAILY PRN (Reason: apply to B/L arms)
levothyroxine 88 mcg Tablet
88 mcg PO DAILY
psyllium Powder
1 tbsp PO BID
ascorbic acid (vitamin C) [Vitamin C] 500 mg Tablet
500 mg PO DAILY PRN (Reason: supplement)
hydrocortisone 1 % Cream
1 applic TOPICAL DAILYPRN PRN (Reason: apply to B/L arms )
Patient Comments:
09/03/2023, OTC.
fluticasone propion-salmeterol 500-50 mcg/dose Blister With Device
1 inh INHALATION R BID
omeprazole 20 mg Capsule,Delayed Release(Dr/Ec)
20 mg PO BID
albuterol sulfate 90 mcg/actuation Hfa Aerosol Inhaler
2 puff INHALATION R Q6HPRN PRN (Reason: sob)
Artificial Tears (PF) 0.1-0.3 % Dropperette
1 drp BOTH EYES DAILYPRN PRN (Reason: dry eyes)
multivitamin with folic acid [High Potency Multivitamin] 400 mcg Tablet
1 tab PO DAILY
PreserVision AREDS-2 250-90-40-1 mg Capsule
1 tab PO BID
Lactobacillus Combo Tablet
1 tab PO QPM
Discontinued
tiotropium bromide [Spiriva with HandiHaler] 18 MCG capsule, w/inhalation device
18 mcg inhalation R DAILYPRN PRN (Reason: sob)
acetaminophen [Tylenol 8 Hour] 650 mg Tablet Extended Release
1,300 mg PO Q8H PRN (Reason: mild pain)
albuterol sulfate 2.5 mg /3 mL (0.083 %) solution for nebulization
2.5 mg inhalation R Q6HPRN PRN (Reason: shortness of breath or wheezing)
Discharge Orders:
Discharge Patient (As Directed); Ordered 09/05/23
Ordered By: Katherin Barrett
Discharge Date and Time
Print Language: GREEK
--- NOTE | 2023-09-05 10:48 | CM ---
Patient with Dx acute asthma exacerbation.
Met with patient who was preparing for d/c. The patient says he feels ready to go home today. IMM completed. Patient declines offer for VN. He is aware that [facility] His partner Jose Juan was at the bedside
for transport home.
No CM d/c meds identified.
Plan home today.
[2023-09-05 11:21] VITALS: BP 149/82
[2023-09-05] MEDS: DUONEB INH (11:31)
== END 2023-09-05 12:24 | disposition home or self-care (01) | DRG 203 ==
LOC: 4 EAST ACU 10:14
PROVIDERS: ADMITTING PHYSICIAN Internal Medicine; CONSULT PHYSICIAN Internal Medicine Critical Care Medicine; EMERGENCY PHYSICIAN Student in an Organized Health Care Education/Training Program
DX: J45.41 Moderate persistent asthma with (acute) exacerbation (principal); E03.9 Hypothyroidism, unspecified; I10 Essential (primary) hypertension; K21.9 Gastro-esophageal reflux disease without esophagitis; G89.29 Other chronic pain; M48.061 Spinal stenosis, lumbar region without neurogenic claudication; M54.9 Dorsalgia, unspecified; L30.9 Dermatitis, unspecified; E66.9 Obesity, unspecified; R73.9 Hyperglycemia, unspecified; D72.829 Elevated white blood cell count, unspecified; Z79.890 Hormone replacement therapy; Z79.51 Long term (current) use of inhaled steroids; Z79.52 Long term (current) use of systemic steroids; Z88.2 Allergy status to sulfonamides; Z88.8 Allergy status to other drugs, medicaments and biological substances; Z68.33 Body mass index [BMI] 33.0-33.9, adult; Z11.52 Encounter for screening for COVID-19
CPT/HCPCS: 71045; 80048; 80053; 85025; 85027; 87502; 87811; 93005; 94640; 96365; 99291